=== PATIENT | female | born 1980 | race American Indian/Alaskan Native ===

== ENCOUNTER → 2017-01-14 | Outpatient (REF) | payer OTHER ==
[~2017-01-14] MED LIST: ACET50TA PO; GLYB25TA PO; GLYB5TA PO; IBUP60TA PO; LEVO25TA5 PO; LEVO50TA5 PO; PRENTAB26 PO
== END ==
LOC: M LAB REF 09:51
PROVIDERS: ATTEND Physician Assistant
DX: N39.0 Urinary tract infection, site not specified (principal)

== ENCOUNTER → 2017-06-22 | Outpatient (REF) | payer OTHER | LOC: M LAB REF 21:14 | PROVIDERS: ATTEND Physician Assistant Medical | DX: R39.89 Other symptoms and signs involving the genitourinary system (principal) ==

== ENCOUNTER → 2018-06-24 | Outpatient (REF) | payer OTHER ==
[2018-06-24 14:14] LABS: APPEARANCE, URINE CLEAR (CLEAR); BACTERIA, URINE AUTO 1+ (NEGATIVE); BILIRUBIN, URINE AUTO NEGATIVE (NEGATIVE); BLOOD, URINE BLOOD 1+ (NEGATIVE); COLOR, URINE STRAW (YELLOW); GLUCOSE, URINE (UA) AUTO NEGATIVE (NEGATIVE); KETONE, URINE AUTO NEGATIVE (NEGATIVE); LEUKOCYTE ESTERASE, URINE AUTO 1+ (NEGATIVE); NITRITE, URINE AUTO NEGATIVE (NEGATIVE); PROTEIN, URINE AUTO NEGATIVE (NEGATIVE); RBC, URINE AUTO 0 /HPF (0-3); SPECIFIC GRAVITY URINE AUTO 1.002 (1.002-1.035); SQUAMOUS EPITHELIAL CELL UR AU 1 /HPF (0-6); UROBILINOGEN, URINE AUTO 0.2 mg/dL (0.0-2.0); WBC, URINE AUTO 0 /HPF (0-3)
== END ==
LOC: M LAB REF 13:01
DX: N39.0 Urinary tract infection, site not specified (principal)
CPT/HCPCS: 81001

== ENCOUNTER 2018-12-26 21:21 | Emergency (ER) | payer OTHER ==
[~2018-12-26] VITALS: Ht 165.1 cm; Wt 100.0 kg
[~2018-12-26 21:21] MED LIST changes: -ACET50TA PO; +MAPA500T2 PO
[2018-12-26] MEDS ORDERED: ONDANSETRON 4MG/2ML VIAL (J2405) IV ONE (22:30)
[2018-12-26] MEDS ORDERED: NS 1,000 ML IV ONE (22:30)
[2018-12-26 22:37] LABS: BASO % 0.4 % (0.0-1.0); EOS # 0.1 10^3/uL (0.0-0.50); EOS % 1.4 % (0.0-3.0); HEMATOCRIT 40.9 % (36.0-47.0); LYMPH # 2.6 10^3/uL (1.5-4.5); LYMPH % 26.7 % (24.0-44.0); MEAN CORPUSCULAR HEMOGLOBIN 27.1 pg (27.0-33.0); MEAN CORPUSCULAR HGB CONC 31.8 g/dl (32.0-36.5); MEAN CORPUSCULAR VOLUME 85.4 fl (80.0-96.0); MONO # 0.5 10^3/uL (0.0-0.8); MONO % 5.3 % (0.0-5.0); NEUTROPHILS # 6.3 10^3/uL (1.8-7.7); NEUTROPHILS % 65.9 % (36.0-66.0); PLATELET COUNT, AUTOMATED 299 10^3/uL (150-450); RED BLOOD COUNT 4.79 10^6/uL (4.00-5.40); WHITE BLOOD COUNT 9.6 10^3/uL (4.0-10.0)
[2018-12-26 22:49] LABS: HCG, SERUM QUALITATIVE NEGATIVE (NEGATIVE)
[2018-12-26 22:50] LABS: ALBUMIN 3.9 GM/DL (3.2-5.2); ALT/SGPT 47 U/L (12-78); BILIRUBIN,DIRECT < 0.1 MG/DL (0.0-0.2); BILIRUBIN,TOTAL 0.3 MG/DL (0.2-1.0); BLOOD UREA NITROGEN 13 MG/DL (7-18); CALCIUM LEVEL 8.7 MG/DL (8.5-10.1); CARBON DIOXIDE LEVEL 26 MEQ/L (21-32); CHLORIDE LEVEL 107 MEQ/L (98-107); CREATININE FOR GFR 0.82 MG/DL (0.55-1.30); GLOMERULAR FILTRATION RATE > 60.0 (>58); GLUCOSE, FASTING 167 MG/DL (70-100); LIPASE 455 U/L (73-393); SODIUM LEVEL 141 MEQ/L (136-145); TOTAL PROTEIN 7.9 GM/DL (6.4-8.2)
[2018-12-26 23:40] LABS: AMYLASE 51 U/L (25-115)
[2018-12-26] MEDS ORDERED: ISOVUE-370 76% 100ML VIAL (Q9967) As Ordered ONE (23:49)
--- NOTE | 2018-12-27 01:36 | REPVR ---
EXAM: CT Abdomen and Pelvis With Contrast EXAM DATE/TIME: 12/27/2018 12:20 AM CLINICAL HISTORY: 38 years old, female; Epigastric pain, elevated lipase, and slight back pain. TECHNIQUE: Axial computed tomography images of the abdomen and pelvis with intravenous contrast. All CT scans at this facility use at least one of these dose optimization techniques: automated exposure control; mA and/or kV adjustment per patient size (includes targeted exams where dose is matched to clinical indication); or iterative reconstruction. Coronal and sagittal reformatted images were created and reviewed. CONTRAST: Contrast Material: 100 ml of ISOVUE 370; Contrast Route: IV COMPARISON: CT ABD PELVIS W/O FOLLOWED BY WITH CONTRAST 08/05/2014 11:02 AM FINDINGS: Lower thorax: Unremarkable. ABDOMEN: Liver: The attenuation of the liver is lower compared to the spleen, which can be seen with fatty liver infiltration. No liver lesion is seen. The contour of the liver is smooth. The liver is enlarged and measures 17.4 cm in craniocaudal dimension at the level of the right midclavicular line. Gallbladder and bile ducts: There has been a cholecystectomy. There is no fluid collection in the gallbladder fossa. No dilation of the bile ducts is noted. Pancreas: Normal. No ductal dilation. There is no inflammatory fat stranding or fluid around the pancreas to suggest pancreatitis. The pancreas enhances homogeneously and there is no evidence for pancreatic necrosis or a pseudocyst. There are no calcifications in the pancreas to suggest chronic pancreatitis. Spleen: Normal. No splenomegaly is noted. Adrenals: Normal. No mass. Kidneys and ureters: There is a striated left renal nephrogram (image 73 of the coronal series 202), which may indicate left pyelonephritis. There is no perinephric fluid collection or renal abscess. There is a 2.5 cm simple cyst arising from the posteromedial aspect of the superior third of the left kidney that has increased in size from 1 cm since the prior CT scan on 08/05/2014. There is a 4 mm simple cyst arising from the lateral cortex of the midpole of the right kidney that is unchanged compared to the prior CT scan on 08/05/2014. 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 No stones are noted in the kidneys or ureters. There is no hydronephrosis or hydroureter. Stomach and bowel: The stomach and small bowel are unremarkable. There is colonic diverticulosis without evidence for diverticulitis. There is no evidence for a bowel obstruction, colitis, pneumatosis intestinalis, intussusception, volvulus, or perforated viscus. Appendix: Normal. There is no evidence for appendicitis. PELVIS: Bladder: The distended urinary bladder is normal in appearance. No stones or masses are seen in the bladder. The contour of the bladder is normal. Reproductive: The anteverted uterus and ovaries are unremarkable. ABDOMEN and PELVIS: Intraperitoneal space: Normal. No free air. No fluid collection. Bones/joints: The imaged bony structures are intact. There is no suspicious osteolytic or osteoblastic lesion. There are mild degenerative changes in the lower lumbar spine that are fairly similar in appearance compared to the prior CT scan on 08/05/2014. Soft tissues: There is a small fat containing umbilical hernia that is similar in appearance compared to the prior CT scan on 08/05/2014. Vasculature: The abdominal aorta is normal in caliber and patent. The iliac arteries, common femoral arteries, renal arteries, celiac artery, superior mesenteric artery, and inferior mesenteric artery are patent. The renal veins, portal veins, splenic vein, superior mesenteric vein, and inferior mesenteric vein are patent. Lymph nodes: Normal. No enlarged lymph nodes. IMPRESSION: 1. Striated left nephrogram, which may indicate left pyelonephritis. 2. No CT evidence for acute or chronic pancreatitis. 3. Hepatomegaly. 4. Colonic diverticulosis without evidence for diverticulitis. 5. Small fat containing umbilical hernia that is similar in appearance compared to the prior CT scan on 08/05/2014. COMMENT: Consistent with the [employer] Incidental Findings Committee Report (J Am Homer Radiol 2010): Unless the patients specific circumstances suggest otherwise, any liver lesion 0.5 cm or less, any cystic kidney lesion less than 1.0 cm, and/or any adrenal lesion 1.0 cm or less not otherwise characterized in this report as possessing suspicious or indeterminate imaging features is/are highly likely to be benign and do not require follow-up imaging or biopsy. Electronically signed by: Kennedy Resendiz On 12/27/2018 01:35:41 AM
[2018-12-27 02:06] VITALS: BP 134/78
== END 2018-12-27 02:08 | disposition home or self-care (01) ==
LOC: M ED 21:21
DX: N30.00 Acute cystitis without hematuria (principal); Z87.440 Personal history of urinary (tract) infections; I10 Essential (primary) hypertension; E03.9 Hypothyroidism, unspecified; N92.6 Irregular menstruation, unspecified; K52.9 Noninfective gastroenteritis and colitis, unspecified; Z79.899 Other long term (current) drug therapy
CPT/HCPCS: 36415; 74177; 80048; 80076; 81001; 82150; 83690; 84703; 85025; 87086; 96374; 99284; J2405; Q9967

== ENCOUNTER → 2020-09-09 | Outpatient (CLI) | payer OTHER ==
[~2020-09-09] MED LIST changes: +CYCL-707 PO; +GLYB-147 PO; -GLYB5TA PO; +GUAI1TAB72 PO; +IBUP600T42 PO; -IBUP60TA PO; +IBUP80TA PO; +LISI10TA4 PO; +METF-839 PO; +PRENTAB53 PO; +[UNRECOGNIZED DRUG - CODE] PO
== END ==
LOC: M LABSMTC 08:21
PROVIDERS: ATTEND Anesthesiology
DX: Z01.812 Encounter for preprocedural laboratory examination (principal); Z20.828 Contact with and (suspected) exposure to other viral communicable diseases

== ENCOUNTER → 2020-09-13 | Outpatient (CLI) | payer OTHER ==
--- NOTE | 2020-09-16 13:37 | ECGEPIP ---
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
== END ==
LOC: M EKG 09:15
PROVIDERS: ATTEND Anesthesiology
DX: Z01.818 Encounter for other preprocedural examination (principal); E11.9 Type 2 diabetes mellitus without complications; I10 Essential (primary) hypertension

== ENCOUNTER 2020-09-14 07:02 | Day surgery (SDC) | payer OTHER ==
[~2020-09-14] VITALS: Ht 165.1 cm; Wt 95.0 kg
[2020-09-14] VITALS (9 sets, daily range): BP systolic 140–147; BP diastolic 84–94
[~2020-09-14 07:02] MED LIST changes: -CYCL-707 PO; -GUAI1TAB72 PO; -IBUP80TA PO; -PRENTAB53 PO; +ceFAZolin SOD 2 GM in IV 1 EA IV ONE
[2020-09-14] MEDS ORDERED: METOCLOPRAMIDE INJ 10MG/2ML VIAL (J2765 PER 1) As Ordered ONE (07:15)
[2020-09-14] MEDS ORDERED: ONDANSETRON 4MG/2ML VIAL As Ordered ONE (07:15)
[2020-09-14] MEDS ORDERED: fentaNYL 100 MCG/2 ML INJECTION (J3010) As Ordered ONE (07:15)
[2020-09-14] MEDS ORDERED: ROCURONIUM BROMIDE 50 MG/5 ML VIAL As Ordered ONE (07:15)
[2020-09-14] MEDS ORDERED: propofoL 200 MG/20 ML VIAL As Ordered ONE (07:15)
[2020-09-14] MEDS ORDERED: MIDAZOLAM INJ 2MG/2ML VIAL (J2250 PER 1MG) As Ordered ONE (07:15)
[2020-09-14] MEDS ORDERED: LIDOCAINE 2% 100MG/5ML SDV (FOR ANES.) As Ordered ONE (07:15)
[2020-09-14] MEDS ORDERED: LR 1,000 ML IV ONE (07:45)
[2020-09-14] MEDS ORDERED: ceFAZolin 1GM VIAL (J0690 PER 500MG) As Ordered ONE (07:47)
[2020-09-14 07:48] LABS: HEMATOCRIT 36.5 % (36.0-47.0); HEMOGLOBIN 11.1 g/dl (12.0-15.5); MEAN CORPUSCULAR HEMOGLOBIN 25.6 pg (27.0-33.0); MEAN CORPUSCULAR HGB CONC 30.4 g/dl (32.0-36.5); MEAN CORPUSCULAR VOLUME 84.1 fl (80.0-96.0); PLATELET COUNT, AUTOMATED 306 10^3/uL (150-450); RED BLOOD COUNT 4.34 10^6/uL (4.00-5.40)
[2020-09-14] MEDS ORDERED: dexameTHASONE 4 MG/ML 1ML VIAL (J1100 PER 1MG) As Ordered ONE (08:53)
[2020-09-14] MEDS ORDERED: KETOROLAC 60MG 2ML VIAL As Ordered ONE (08:53)
[2020-09-14] MEDS ORDERED: HYDROmorphone HCL 2 MG/ML 1ML VIAL (J1170) As Ordered ONE (08:54)
[2020-09-14] MEDS ORDERED: SUGAMMADEX SODIUM 500 MG/5 ML VIAL (BRIDION) As Ordered ONE (09:32)
[2020-09-14] MEDS ORDERED: MORPHINE 1MG/ML IN 0.9% NACL 100ML IV BAG As Ordered ONE (10:19)
[2020-09-14] MEDS ORDERED: ONDANSETRON 4MG/2ML VIAL IV PRN (10:30)
[2020-09-14] MEDS ORDERED: NS 1,000 ML IV SCH (10:30)
[2020-09-14] MEDS ORDERED: diphenhydrAMINE 50MG/ML VIAL (J1200) IV PRN (10:30)
[2020-09-14] MEDS ORDERED: NALOXONE INJ 0.4MG/1ML VIAL (J2310 PER 1MG) IV PRN (10:30)
[2020-09-14] MEDS: LR 1,000 ML IV SCH ×3 (10:30→22:18)
[2020-09-14] MEDS ORDERED: MORPHINE 1MG/ML IN 0.9% NACL 100ML IV BAG IV PRN (10:30)
[2020-09-14] MEDS ORDERED: fentaNYL 100 MCG/2 ML INJECTION (J3010) IV PRN (10:30)
[2020-09-14] MEDS ORDERED: EPIDURAL/PCA KEYS XX PRN (10:30)
[2020-09-14] MEDS ORDERED: LR 1,000 ML IV SCH (10:30)
[2020-09-14] MEDS ORDERED: NALBUPHINE HCL 10 MG/ML AMP (J2300) IV PRN (10:30)
[2020-09-14] MEDS ORDERED: oxyCODONE 5MG TAB PO PRN (10:30)
[2020-09-14] MEDS ORDERED: ACETAMINOPHEN *IV* 1,000 MG IV ONE ×2 (11:00)
[2020-09-14] MEDS ORDERED: PRENTAB53 PO (15:13)
[2020-09-14] MEDS ORDERED: LEVO25TA5 PO (15:13)
[2020-09-14] MEDS ORDERED: CYCL-707 PO (15:13)
[2020-09-14] MEDS ORDERED: IBUP80TA PO (15:13)
[2020-09-14] MEDS ORDERED: GUAI1TAB72 PO (15:13)
[2020-09-14] MEDS ORDERED: CYCLOBENZAPRINE 10MG TABLET PO PRN (16:00)
[2020-09-14] MEDS: IBUPROFEN 600MG TAB PO PRN (23:41)
[2020-09-15 00:45] VITALS: BP 124/64
[2020-09-15] MEDS: LR 1,000 ML IV SCH (05:48)
[2020-09-15 05:51] LABS: HEMATOCRIT 28.1 % (36.0-47.0); MEAN CORPUSCULAR HEMOGLOBIN 26.2 pg (27.0-33.0); MEAN CORPUSCULAR HGB CONC 31.7 g/dl (32.0-36.5); MEAN CORPUSCULAR VOLUME 82.6 fl (80.0-96.0); PLATELET COUNT, AUTOMATED 252 10^3/uL (150-450)
[2020-09-15 06:00] VITALS: BP 121/62
[2020-09-15 06:00] LABS: HEMOGLOBIN 8.9 g/dl (12.0-15.5)
[2020-09-15] MEDS ORDERED: LEVOTHYROXINE 25MCG TABLET (0.025MG) PO SCH (06:00)
[2020-09-15] MEDS ORDERED: NORCO, ANEXSIA 5/325MG TABLET (HYDROcodone/ACETAMINOPHEN) PO PRN (06:00)
[2020-09-15] MEDS ORDERED: metFORMIN (GLUCOPHAGE) 500 MG TAB PO SCH (08:00)
[2020-09-15 08:12] VITALS: BP 132/77
[2020-09-15] MEDS: IBUPROFEN 600MG TAB PO PRN (08:12)
--- NOTE | 2020-09-15 08:25 | RO ---
DATE OF OPERATION: 09/14/2020 PREOPERATIVE DIAGNOSIS - INDICATION FOR SURGERY: Pain, bleeding, dyspareunia. POSTOPERATIVE DIAGNOSIS: Pain, bleeding, dyspareunia. PROCEDURE: Laparoscopic-assisted vaginal hysterectomy with bilateral salpingo- oophorectomy. SURGEON: Gita Hugo MD COLOR PRINTER OPERATOR: Jim ANESTHESIA: General endotracheal anesthesia SPECIMENS: Uterus, ovaries and tubes. BRIEF DESCRIPTION OF PROCEDURE AND OPERATIVE FINDINGS: Tish presented to the operating room and was anesthetized, prepped, draped and positioned in the usual sterile fashion. The uterine manipulator was placed. The uterus sounded to 9 and then Tam with the ability to backfill was placed and attention was turned to the abdomen. A transverse semilunar incision was made below the umbilicus. Sharp and blunt dissection were continued through the subcutaneous tissues to the level of the rectus fascia which was transversely incised, secured with 0 Vicryl retention sutures and then the peritoneum entered in an open laparoscopic technique. The Loly cannula was then placed and secured with the 0 Vicryl retention sutures. CO2 insufflation was then begun. After adequate CO2 insufflation, the peritoneal cavity was visualized. There were normal shiny peritoneal surfaces throughout. There was no excrescence, ascites nor exudate. There were multiple adhesions of the descending colon along the left pelvic sidewall and some of these obscured the infundibulopelvic and so were taken down with cold scissors prior isolating the infundibulopelvic ligament on the left side which was done with the #45 Enseal. This was used to dissect and transect after cautery the infundibulopelvic ligament and the blood supply to the ovary. We then continued the dissection through the broad ligament to the round which was carefully transected and attention then turned to the right side again using the operative port and the operative scope at the umbilicus. The omentum and other tissues were carefully pressed away using Trendelenburg and then again, the infundibulopelvic ligament isolated, kept away from both bowel and ureter and carefully cauterized and transected and the dissection then continued to the round ligament on the right side which was also carefully transected. We worked our way through the superior aspect of the broad, taking care to avoid injury to the bladder and then turned our attention to the vaginal portion of the procedure. Instruments were removed at the umbilicus but the trocar left in place and then we went to work vaginally. With the uterine manipulator removed and the anterior and posterior aspect of the cervix grasped with single-tooth tenacula, a circumferential incision was made around the base of the cervix. The tissues were carefully dissected to isolate the cardinal ligaments which were then clamped, transected and ligated. The patient had many ascending vaginal vessels which bled at this portion of the procedure but not in an unsafe fashion. We continued this dissection to isolate the uterosacrals and entered the peritoneum posteriorly and then carefully transected the uterosacrals which were held for later reattachment to the cuff and then dissected anteriorly to create the bladder flap and the uterine vasculature was carefully clamped, transected and ligated in a sequential fashion until the uterus with the attached ovaries and tubes could be delivered. We used the De French clamps, the SuperCut scissors and 0 Vicryl throughout the case. With the uterus delivered, the pedicles were carefully evaluated. 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 With the vaginal cuff closed, attention was turned to the umbilical wound. The trocar was removed. The fascial layer was closed with the 0 Vicryl retention sutures and the skin closed with a 3-0 Vicryl in subcuticular stitch and dry sterile dressing was then applied. Good hemostasis and approximation were achieved at each of these layers. The procedure was then ended. ESTIMATED BLOOD LOSS: For the procedure, about 250 mL. FLUID REPLACEMENT: Crystalloid. COMPLICATIONS: None. CONDITION AND DISPOSITION: Tish tolerated the procedure well and was recovering in the recovery room in good condition. MIA
[2020-09-15] MEDS ORDERED: lisinopriL 10 MG TAB PO SCH (09:00)
[2020-09-15] MEDS ORDERED: CETIRIZINE (ZyrTEC) 10 MG TAB PO SCH (09:00)
[2020-09-15 10:00] VITALS: BP 130/76
== END 2020-09-15 10:15 | disposition home or self-care (01) ==
LOC: M SDC 07:02 → M MSPAV 11:39 → M SDC 09-15 10:15
PROVIDERS: ATTEND Obstetrics & Gynecology
DX: R10.2 Pelvic and perineal pain (principal); N93.9 Abnormal uterine and vaginal bleeding, unspecified; N94.10 Unspecified dyspareunia; I10 Essential (primary) hypertension; E11.9 Type 2 diabetes mellitus without complications; E03.9 Hypothyroidism, unspecified
CPT/HCPCS: 36415; 58262; 81025; 85027; 86850; 86900; 86901; 88307; 96374; J0131; J0690; J1100; J1170; J1885; J2250; J2405; J2765; J3010

== ENCOUNTER → 2021-02-09 | Outpatient (CLI) | payer OTHER ==
[~2021-02-09] MED LIST changes: +CYCL-707 PO; +GLYB2.5T7 PO; -GLYB25TA PO; +GUAI1TAB72 PO; +IBUP80TA PO; +LISI10TA22 PO; -LISI10TA4 PO; +PRENTAB53 PO; -ceFAZolin SOD 2 GM in IV 1 EA IV ONE
--- NOTE | 2021-02-09 12:02 | REPMRS ---
Patient History The patient states she had a clinical breast exam in 2019. Patient is postmenopausal. No known family history of cancer. Digital Woman Screen Mammo: February 09, 2021 - Exam #: [id number] Bilateral CC and MLO view(s) were taken. Technologist: Yadi Cole, Technologist Prior study comparison: May 31, 2020, bilateral digital mammo screening bilat, performed at [facility]. March 20, 2018, bilateral digital mammo screening bilat, performed at [facility]. FINDINGS: The breast tissue is almost entirely fat. The Volpara volumetric breast density category is: A. There are stable benign dermal calcifications again noted bilaterally. There has been no change in the appearance of the mammogram from the prior studies. There is no interval development of dominant mass, architectural distortion, or grouped microcalcification typical of malignancy. 3-D tomosynthesis shows no additional findings. Assessment: BI-RADS/ACR category 2 mammogram. Benign Findings. Recommendation Routine screening mammogram of both breasts in 1 year (for women over age 40). This patient's [facility] Lifetime Breast Cancer RIsk is estimated at 7.5 %. This mammogram was interpreted with the aid of an FDA-approved computer-aided dectection system. Electronically Signed By: Eduardo Oneal MD 02/09/21 [id number]
== END ==
LOC: M WHC 10:04
PROVIDERS: ATTEND Nurse Practitioner Family
DX: Z12.31 Encounter for screening mammogram for malignant neoplasm of breast (principal)